=== PATIENT | female | born 1960 | race Caucasian/White ===

== ENCOUNTER 2025-01-22 10:14 | Emergency (ER) | payer OTHER ==
[~2025-01-22] VITALS: Ht 170.1 cm; Wt 52.2 kg
[~2025-01-22 10:14] MED LIST: AMOXIL500 MG PO; LOPRESSOR50 M1 PO; MOTRIN800 MG PO; ZYRTEC10 M1 PO
[2025-01-22] MEDS ORDERED: Albuterol Sulf/Ipratropium 3 ML VIAL NEB ONE (10:40)
[2025-01-22 11:02] LABS: BASO # 0.1 10*3/uL (0.0-0.1); BASO % 0.5 % (0.0-1.0); EOS # 0.0 10*3/uL (0.0-0.4); EOS % 0.2 % (1.0-4.0); MEAN CELL VOLUME 94.1 fl (81.0-99.0); MEAN CORPUSCULAR HGB 29.7 pg (27.0-31.0); MEAN PLATELET VOLUME 9.4 fl (9.6-12.3); MONO # 0.5 10*3/uL (0.1-1.0); MONO % 5.1 % (3.0-9.0); NEUT # 7.1 10*3/uL (2.3-7.9); NEUT % 72.8 % (47.0-73.0); NUCLEATED RED BLOOD CELL 0.0 % (0.0-0.0); NUCLEATED RED BLOOD CELL 0.0 10*3/uL (0.0-0.0); PLATELET COUNT AUTOMATED 410 10*3/uL (130-400); RED CELL DISTRI WIDTH 15.1 % (0-14.5)
[2025-01-22] MEDS ORDERED: Water, Sterile 10 ML VIAL ONE (11:16)
[2025-01-22 11:25] LABS: BUN 24 mg/dl (9-23)
[2025-01-22] MEDS ORDERED: PREDNISONE20 M1 PO (13:32)
[2025-01-22] MEDS ORDERED: LEVOFLOXACIN750 M2 PO (13:32)
[2025-01-22] MEDS ORDERED: ALBUTEROL 8 GM INHALER INH ONE (13:35)
== END 2025-01-22 13:36 | disposition home or self-care (01) ==
LOC: ED 10:14
PROVIDERS: Emergency Medicine
DX: J44.9 Chronic obstructive pulmonary disease, unspecified (principal); J18.9 Pneumonia, unspecified organism; J90 Pleural effusion, not elsewhere classified; F17.210 Nicotine dependence, cigarettes, uncomplicated; Z98.890 Other specified postprocedural states; Z88.8 Allergy status to other drugs, medicaments and biological substances; Z91.013 Allergy to seafood

== ENCOUNTER 2025-03-07 03:06 | Emergency (ER) | payer OTHER ==
[~2025-03-07] VITALS: Ht 167.6 cm; Wt 53.5 kg
[~2025-03-07 03:06] MED LIST changes: +ASPIRIN ADULT L81 M1 PO; +ATORVASTATIN CA20 M1 PO; +CARVEDILOL6.25 MG PO; +DOXYCYCLINE MO100 MG PO; +JARDIANCE10 MG PO; +LEVOFLOXACIN750 M2 PO; +LISINOPRIL5 MG PO; +MUCUS RELIEF E600 MG PO; +PLAVIX75 M1 PO; +PREDNISONE10 MG PO; +PREDNISONE20 M1 PO
[2025-03-07 03:27] LABS: BASO # 0.0 10*3/uL (0.0-0.1); BASO % 0.3 % (0.0-1.0); EOS # 0.0 10*3/uL (0.0-0.4); EOS % 0.2 % (1.0-4.0); MEAN CELL VOLUME 94.4 fl (81.0-99.0); MEAN CORPUSCULAR HGB 29.4 pg (27.0-31.0); MEAN PLATELET VOLUME 9.4 fl (9.6-12.3); MONO # 0.6 10*3/uL (0.1-1.0); MONO % 6.0 % (3.0-9.0); NEUT # 7.6 10*3/uL (2.3-7.9); NEUT % 72.1 % (47.0-73.0); NUCLEATED RED BLOOD CELL 0.0 % (0.0-0.0); NUCLEATED RED BLOOD CELL 0.0 10*3/uL (0.0-0.0); PLATELET COUNT AUTOMATED 470 10*3/uL (130-400); RED CELL DISTRI WIDTH 14.2 % (0-14.5)
[2025-03-07 03:47] LABS: BUN 30 mg/dl (9-23)
[2025-03-07] MEDS ORDERED: Albuterol Sulf/Ipratropium 3 ML VIAL NEB ONE (04:30)
[2025-03-07] MEDS ORDERED: Water, Sterile 10 ML VIAL ONE (04:57)
[2025-03-07] MEDS ORDERED: ZITHROMAX250 MG PO (06:10)
[2025-03-07] MEDS ORDERED: PREDNISONE20 M1 PO (06:10)
[2025-03-07] MEDS ORDERED: POTASSIUM CHLORIDE 20 MEQ TAB PO ONE (06:15)
== END 2025-03-07 06:27 | disposition home or self-care (01) ==
LOC: ED 03:06
PROVIDERS: Internal Medicine
DX: J44.1 Chronic obstructive pulmonary disease with (acute) exacerbation (principal); E87.6 Hypokalemia; N17.9 Acute kidney failure, unspecified; F17.200 Nicotine dependence, unspecified, uncomplicated; Z98.890 Other specified postprocedural states; Z79.899 Other long term (current) drug therapy; Z79.82 Long term (current) use of aspirin; Z91.041 Radiographic dye allergy status; Z91.013 Allergy to seafood